=== PATIENT | male | born 1970 | race Caucasian/White ===

== ENCOUNTER 2016-06-08 12:40 | Emergency (ER) | payer MEDICARE, MEDICAID ==
--- NOTE | 2016-06-08 13:06 | Emergency Department Record ---
History of Present Illness - General Chief complaint: Abscess Stated complaint: BLISTER ON R TOE Time Seen by Provider: 06/08/16 12:51 Source: Patient Mode of Arrival: Ambulatory Limitations: No limitations - History of Present Illness Initial comments: The patient has a hx of DM and is on Dialysis and has had a chronic callus to the ball of the R foot. One day ago the wound broke open and started draining. He went [place] [facility] [place] and received 2 different Abx's and was in the process of being admitted and then got angry due to the wait so he left. Now he is here at [facility] and asking for someone to clean the wound. He denies any other issues and did have dialysis 2 days ago and is due again tomorrow. complaint: Lesion Onset/Timin -: Days(s) Location: R foot Severity: Mild Severity scale (1-10): 1 Improves with: None Worsens with: None Context: None Associated symptoms: Denies other symptoms Treatments Prior to Arrival: Attempted to drain pus at home, Bandages - Related Data Home Medications Medication Instructions Recorded Confirmed Last Taken Amlodipine Besylate [Norvasc] 10 mg PO DAILY 02/14/14 06/08/16 02/27/14 09:00 Ergocalciferol (Vitamin D2) 50,000 unit PO WEEKLY 02/14/14 06/08/16 02/26/14 09: 00 [Vitamin D2] Furosemide 20 mg PO DAILY 02/14/14 06/08/16 02/27/14 09:00 Hydrochlorothiazide [Hctz] 25 mg PO DAILY 02/14/14 06/08/16 02/27/14 21:00 Atorvastatin Calcium [Lipitor] 40 mg PO DAILY 06/08/16 06/08/16 Unknown Carvedilol [Coreg] 25 mg PO BID 06/08/16 06/08/16 Unknown Insulin Aspart Protam & Aspart 18 unit SQ BID 06/08/16 06/08/16 Unknown [Novolog Mix 70/30 Vial] Isosorbide Dinitrate 10 mg PO DAILY 06/08/16 06/08/16 Unknown Allergies Allergy/AdvReac Type Severity Reaction Status Date / Time No Known Drug Allergies Allergy Verified 06/08/16 12:51 Travel Screening - Travel/Exposure Within Last 30 Days Have you traveled within the last 30 days?: No Review of Systems Constitutional: Denies: Chills, Fever Eyes: Denies: Eye discharge ENT: Denies: Congestion Respiratory: Denies: Cough, Dyspnea Past Medical History - SOCIAL HISTORY Smoking Status: Current every day smoker Alcohol Use: None Drug Use: None - RESPIRATORY Hx Respiratory Disorders: No - CARDIOVASCULAR Hx Cardio Disorders: Yes Hx Hypertension: Yes - NEURO Hx Neuro Disorders: Yes Hx Neuropathy: Yes - GI Hx GI Disorders: Yes Hx Hiatal Hernia: Yes Hx Pancreatitis: Yes Hx Rectal Bleeding: Yes - Hx Genitourinary Disorders: Yes Comment:: dialysis T, Th, Sat - ENDOCRINE Hx Endocrine Disorders: Yes Hx Diabetes: Yes - MUSCULOSKELETAL Hx Musculoskeletal Disorders: Yes Hx Back Injury: Yes - PSYCH Hx Psych Problems: Yes Hx Anxiety: Yes Hx Depression: Yes - HEMATOLOGY/ONCOLOGY Hx Hematology/Oncology Disorders: No Family Medical History Any Significant Family History?: Yes Hx Anxiety: Mother Hx Depression: Mother Hx Diabetes: Mother Hx Heart Disease: Mother Hx HTN: Mother Hx Resp Disorders: Mother Hx Seizures: Mother Hx Stroke: Father, Mother Physical Exam - General General Appearance: Alert, Oriented x3, Cooperative, No acute distress - Head Head exam: Atraumatic, Normocephalic, Normal inspection - Eye Eye exam: Normal appearance, PERRL - Neck Neck exam: Normal inspection, Full ROM. negative: Tenderness - Respiratory Respiratory exam: Normal lung sounds bilaterally. negative: Respiratory distress - Cardiovascular Cardiovascular Exam: Regular rate, Normal rhythm, Normal heart sounds - Extremities Extremities exam: Tenderness, Other (There is no significant swelling to the foot and the R DP pulse is WNL.). negative: Normal inspection (There is an open 2x2 cm wound to the ball of the R foot which is draining a small amount of purulent material. There is erythema to the sole of the foot around the wound.) , Full ROM, Joint swelling Course Vital Signs 06/08/16 12:43 Temperature 97.6 F Pulse Rate 83 Respiratory 18 Rate Blood Pressure 171/103 Pulse Ox 98 - Reevaluation(s) Reevaluation #1: I did discuss the issues with the patient. He repeatedly is asking to stay at [facility]. I explained to him that due to the fact we have no foot surgeon or hemodialysis here that will not be possible. I explained to him that he will need to stay in a larger hospital and he chose [facility] [place] to his dialysis doctor being on staff there. 06/08/16 13:42 Reevaluation #2: I did discuss the case with Dr. Jimenez at [facility] and he accepts the patient to the hospital. 06/08/16 13:47 Reevaluation #3: The patient is refusing transfer by Ambulance. He understands the risks of driving with his family to [facility] and accepts the risks. 06/08/16 14:19 Medical Decision Making - Lab Data Result diagrams: 06/08/16 13:00 06/08/16 13:00 Disposition Disposition: Discharge Clinical Impression: Cellulitis of foot, right Disposition: Acute Care Hospital Transfer Transfer To: [facility] Reason For Transfer: Dialysis Accepting Physician: Barbara. Time Discussed w/Accepting Physician: 13:48 Condition: (2) Stable Forms: Patient Portal Access Time of Disposition: 13:49
[2016-06-08 13:14] LABS: BASO % 0.4 % (0-6); GRAN % 79.6 % (47-80); HEMATOCRIT 33.2 % (42.0-52.0); HEMOGLOBIN 11.2 gm/dl (14.0-18.0); LYMPH % 9.5 % (16-45); MEAN CELL VOLUME 93.5 fl (81-97); MEAN CORPUSCULAR HEMOGLOBIN 31.5 pg (27-33); MEAN CORPUSCULAR HGB CONC 33.7 g/dl (32-36); MEAN PLATELET VOLUME 11.3 fl (7.4-10.4); MONO % 7.5 % (0-9); PLATELET COUNT 217 K/uL (130-400); RED BLOOD COUNT 3.55 M/uL (4.40-5.70); RED CELL DISTRIBUTION WIDTH 17.4 % (11.5-14.5); WHITE BLOOD COUNT W/O DIFF 8.5 K/uL (4.2-12.2)
[2016-06-08 13:27] LABS: ANION GAP 9.4 (7-16); C-REACTIVE PROTEIN 6.5 mg/dL (0.0-0.9); CARBON DIOXIDE 29.6 mmol/L (22-30); CREATININE 5.4 mg/dL (0.66-1.25)
[2016-06-08] MEDS ORDERED: HYDROCODONE/APAP 7.5/325MG TABLET PO ONE (13:42)
[2016-06-08] MEDS ORDERED: CEFTRIAXONE SODIUM 1 GM in 0.9 % SODIUM CHLORIDE 100ML 100 ML IVPB ONE (13:42)
[2016-06-08 13:49] LABS: ERYTHROCYTE SEDIMENTATION RATE 28 mm/hr (0-15)
== END 2016-06-08 14:31 | disposition short-term general hospital (02) ==
LOC: ER 12:40
DX: E11.628 Type 2 diabetes mellitus with other skin complications (principal); L03.115 Cellulitis of right lower limb; Z79.4 Long term (current) use of insulin
CPT/HCPCS: 80048; 85025; 85651; 86140; 96365; 99284

== ENCOUNTER 2016-09-07 01:24 | Emergency (ER) | payer MEDICARE, MEDICAID ==
[2016-09-07] MEDS ORDERED: DIAZEPAM 5 MG/1 ML TUBX IM ONE (01:41)
--- NOTE | 2016-09-07 01:48 | Emergency Department Record ---
History of Present Illness - General Chief complaint: Pain Stated complaint: LOWER EXTREMITY PAIN Time Seen by Provider: 09/07/16 01:41 Source: Patient Mode of Arrival: Ambulatory Limitations: No limitations - History of Present Illness Initial comments: 45 yo male presents to ED with a CC of "leg pain" resulting from neuropathy. Patient reports that he has chronic neuropathy pain all the time, however his symptoms worsen during and following Dialysis. Patient describes his pain as "spasms". Patient reports that he was dialyzed yesterday morning, and his symptoms have worsened since that time. Patient reports that his family doctor has taken him off all his pain medications and he is awaiting pain specialist consultation in [place]. Patient denies new injury, and reports that he is only taking "Tylenol for his pain symptoms" at home. MD Complaint: Extremity pain Onset/Timin -: Days(s) Location: Bilateral, Lower Leg, Thigh History of Same: Yes Severity scale (1-10): 10 Quality: Aching Consistency: Constant Improves with: Nothing Worsens with: Nothing Associated Symptoms: Denies other symptoms - Related Data Home Medications Medication Instructions Recorded Confirmed Last Taken Amlodipine Besylate [Norvasc] 10 mg PO DAILY 02/14/14 09/07/16 02/27/14 09:00 Carvedilol [Coreg] 25 mg PO BID 06/08/16 09/07/16 Unknown Insulin Aspart Prot/Insuln Asp 18 unit SQ BID 06/08/16 09/07/16 Unknown [Novolog Mix 70/30 Vial] Sevelamer Carbonate [Renvela] 800 mg PO BID 09/07/16 09/07/16 Unknown Allergies Allergy/AdvReac Type Severity Reaction Status Date / Time No Known Drug Allergies Allergy Verified 06/08/16 12:51 Travel Screening - Travel/Exposure Within Last 30 Days Have you traveled within the last 30 days?: No Review of Systems Constitutional: Denies: Chills, Fever, Malaise, Night sweats Eyes: Denies: Eye discharge, Eye pain ENT: Denies: Congestion, Ear pain, Epistaxis Respiratory: Denies: Cough, Dyspnea Cardiovascular: Denies: Chest pain, Dyspnea on exertion Endocrine: Denies: Fatigue, Heat or cold intolerance Gastrointestinal: Denies: Abdominal pain, Nausea, Vomiting Genitourinary: Denies: Incontinence, Retention Musculoskeletal: Reports: Myalgia. Denies: Arthralgia, Back pain, Gout, Joint swelling Skin: Denies: Bruising, Change in color Neurological: Denies: Abnormal gait, Confusion, Headache, Numbness, Paresthesias , Seizure Psychiatric: Denies: Anxiety Hematological/Lymphatic: Denies: Anemia, Blood Clots Past Medical History - SOCIAL HISTORY Smoking Status: Current every day smoker Alcohol Use: None Drug Use: None - RESPIRATORY Hx Respiratory Disorders: No - CARDIOVASCULAR Hx Cardio Disorders: Yes Hx Hypertension: Yes - NEURO Hx Neuro Disorders: Yes Hx Neuropathy: Yes - GI Hx GI Disorders: Yes Hx Hiatal Hernia: Yes Hx Pancreatitis: Yes Hx Rectal Bleeding: Yes - Hx Genitourinary Disorders: Yes Comment:: dialysis T, Th, Sat - ENDOCRINE Hx Endocrine Disorders: Yes Hx Diabetes: Yes - MUSCULOSKELETAL Hx Musculoskeletal Disorders: Yes Hx Back Injury: Yes - PSYCH Hx Psych Problems: Yes Hx Anxiety: Yes Hx Depression: Yes - HEMATOLOGY/ONCOLOGY Hx Hematology/Oncology Disorders: No Family Medical History Any Significant Family History?: Yes Hx Anxiety: Mother Hx Depression: Mother Hx Diabetes: Mother Hx Heart Disease: Mother Hx HTN: Mother Hx Resp Disorders: Mother Hx Seizures: Mother Hx Stroke: Father, Mother Physical Exam - General General Appearance: Alert, Oriented x3, Cooperative, Moderate distress, Other ( Patient is agitated on examination) Limitations: No limitations - Head Head exam: Atraumatic, Normocephalic, Normal inspection Head exam detail: negative: Abrasion, Contusion, Dumont's sign, General tenderness, Hematoma, Laceration - Eye Eye exam: Normal appearance. negative: Conjunctival injection, Periorbital swelling, Periorbital tenderness, Scleral icterus - ENT Ear exam: negative: Auricular hematoma, Auricular trauma Nasal Exam: negative: Active bleeding, Discharge, Dried blood, Foreign body Mouth exam: negative: Drooling, Laceration, Muffled voice, Tongue elevation - Neck Neck exam: Normal inspection. negative: Meningismus, Tenderness - Respiratory Respiratory exam: Normal lung sounds bilaterally. negative: Respiratory distress, Rhonchi, Stridor, Wheezes - Cardiovascular Cardiovascular Exam: Regular rate, Normal rhythm, Normal heart sounds - GI/Abdominal GI/Abdominal exam: Soft. negative: Organomegaly, Rebound, Rigid, Tenderness - Rectal Rectal exam: Deferred - exam: Deferred - Extremities Extremities exam: Other (Fistula to the LUE). negative: Pedal edema, Tenderness - Back Back exam: Denies: CVA tenderness (R), CVA tenderness (L) - Neurological Neurological exam: Alert, Normal gait, Oriented X3 - Psychiatric Psychiatric exam: Normal affect, Normal mood - Skin Skin exam: Normal color. negative: Abrasion Type of lesion: negative: abrasion Course Vital Signs 09/07/16 01:29 Temperature 97.7 F Pulse Rate 90 Respiratory 24 Rate Blood Pressure 184/108 Pulse Ox 98 - Reevaluation(s) Reevaluation #1: 09/07/16 01:46 During discussion with the patient, patient reports that his PCP is "a dumb shit " and doesn't "do anything for me". I offered the patient Neurontin, Lyrica, or Tramadol for his pain symptoms, patient reports "those don't do shit for me, I need [place] or Percocet like Dr. Santos gave ma following my fistula". I explained to the patient that I am unable to prescribe opiate pain medication for his chronic pain symptoms, patient replied "so you won't do shit for me either". Valium was offered for his spasm pain, will reassess. Reevaluation #2: 09/07/16 02:08 Patient reassessed, reports significant improvement in his symptoms. Patient appears stable for discharge at this time. Disposition Disposition: Discharge Clinical Impression: Chronic painful diabetic neuropathy Disposition: Home, Self-Care Condition: (2) Stable Instructions: Diabetic Peripheral Neuropathy (ED) Additional Instructions: Return to ED if your symptoms worsen or if you have any concerns. Follow-up with your family doctor at [facility] in 1-3 days for further evaluation. Forms: Patient Portal Access Time of Disposition: 02:09
== END 2016-09-07 02:19 | disposition home or self-care (01) ==
LOC: ER 01:24
DX: E11.42 Type 2 diabetes mellitus with diabetic polyneuropathy (principal); E11.65 Type 2 diabetes mellitus with hyperglycemia; G89.4 Chronic pain syndrome; Z79.4 Long term (current) use of insulin; I10 Essential (primary) hypertension; Z99.2 Dependence on renal dialysis; F17.200 Nicotine dependence, unspecified, uncomplicated
CPT/HCPCS: 72192; 80053; 83605; 85027; 85610; 85730; 86140; J3360

== ENCOUNTER 2016-09-07 23:58 | Emergency (ER) | payer MEDICARE, MEDICAID ==
--- NOTE | 2016-09-08 00:15 | Emergency Department Record ---
History of Present Illness - General Stated complaint: PAIN Time Seen by Provider: 09/08/16 00:10 Source: Patient, Family Mode of Arrival: Ambulatory Limitations: No limitations - History of Present Illness Initial comments: 45 yo male presents with leg pain. He had DM and ESRD on HD. He reports he has chronic pain from his neuropathy. He reports his doctor took him off his pain medications waiting for a pain specialist. Over the last week he has developed swelling, tightness of the skin, warmth and redness. He denies any fevers. He has a tender area in the left groin with tenderness going down the leg. It hurts to stand or walk. MD Complaint: Extremity pain, Extremity swelling -: Days(s) Location: Left -: Yes Arthralgia Radiation: Proximal, Distal Quality: Aching Consistency: Constant Improves with: Rest Worsens with: Exertion, Palpation, Walking, Weight bearing Associated Symptoms: Denies other symptoms - Related Data Home Medications Medication Instructions Recorded Confirmed Last Taken Amlodipine Besylate [Norvasc] 10 mg PO DAILY 02/14/14 09/08/16 09/07/16 Carvedilol [Coreg] 25 mg PO BID 06/08/16 09/08/16 09/07/16 Insulin Aspart Prot/Insuln Asp 0 unit SQ BID 06/08/16 09/08/16 09/07/16 [Novolog Mix 70/30 Vial] Sevelamer Carbonate [Renvela] 800 mg PO BID 09/07/16 09/08/16 09/07/16 Allergies Allergy/AdvReac Type Severity Reaction Status Date / Time No Known Drug Allergies Allergy Verified 06/08/16 12:51 Review of Systems Constitutional: Reports: Malaise. Denies: Chills, Fever, Weakness Eyes: Denies: Eye discharge ENT: Denies: Congestion, Throat pain Respiratory: Denies: Cough, Dyspnea, Hemoptysis, Stridor, Wheezes Cardiovascular: Denies: Chest pain, Palpitations, Syncope Endocrine: Reports: Fatigue. Denies: Polydipsia, Polyuria Gastrointestinal: Denies: Abdominal pain, Diarrhea, Nausea, Vomiting Genitourinary: Denies: Hematuria, Urgency Musculoskeletal: Reports: Arthralgia, Myalgia. Denies: Joint swelling, Neck pain Skin: Reports: Change in color. Denies: Bruising Neurological: Denies: Confusion, Headache Psychiatric: Denies: Anxiety Hematological/Lymphatic: Denies: Blood Clots, Easy bleeding, Easy bruising, Swollen glands Past Medical History - SOCIAL HISTORY Smoking Status: Current every day smoker Drug Use: None - RESPIRATORY Hx Respiratory Disorders: No - CARDIOVASCULAR Hx Cardio Disorders: Yes Hx Hypertension: Yes - NEURO Hx Neuro Disorders: Yes Hx Neuropathy: Yes - GI Hx GI Disorders: Yes Hx Hiatal Hernia: Yes Hx Pancreatitis: Yes Hx Rectal Bleeding: Yes - Hx Genitourinary Disorders: Yes Comment:: dialysis T, Th, Sat - ENDOCRINE Hx Endocrine Disorders: Yes Hx Diabetes: Yes - MUSCULOSKELETAL Hx Musculoskeletal Disorders: Yes Hx Back Injury: Yes - PSYCH Hx Psych Problems: Yes Hx Anxiety: Yes Hx Depression: Yes - HEMATOLOGY/ONCOLOGY Hx Hematology/Oncology Disorders: No Family Medical History Hx Anxiety: Mother Hx Depression: Mother Hx Diabetes: Mother Hx Heart Disease: Mother Hx HTN: Mother Hx Resp Disorders: Mother Hx Seizures: Mother Hx Stroke: Father, Mother Physical Exam - General General Appearance: Alert, Oriented x3, Cooperative, No acute distress Limitations: No limitations - Head Head exam: Normal inspection - Eye Eye exam: Normal appearance, PERRL - ENT ENT exam: Normal exam Ear exam: Normal external inspection Nasal Exam: Normal inspection Mouth exam: Normal external inspection Teeth exam: Normal inspection Throat exam: Normal inspection - Neck Neck exam: Normal inspection, Full ROM. negative: Tenderness - Respiratory Respiratory exam: Normal lung sounds bilaterally. negative: Respiratory distress - Cardiovascular Cardiovascular Exam: Regular rate, Normal rhythm, Normal heart sounds - GI/Abdominal GI/Abdominal exam: Soft. negative: Distended - exam: Other (Erythema of groin, ) - Extremities Extremities exam: Calf tenderness, Pedal edema, Tenderness. negative: Normal inspection, Joint swelling Image of Full Body: 1 - erythema from the groin medially down the leg medially with warmth, there is diffuse swelling, the bilateral groin is consistent with tenia cruris but the left has swelling and fullness inthe proximal thigh/groin junciton with tenderness, scrotal erythema as well. mild scrotal swelling, non tender scrotum 2 - abrasion with shallow ulceration with erythema 3 - dry right foot ulceration - Back Back exam: Reports: Normal inspection, Full ROM. Denies: Muscle spasm, Rash noted, Tenderness - Neurological Neurological exam: Alert, Normal gait, Oriented X3, Reflexes normal - Psychiatric Psychiatric exam: Normal affect, Normal mood - Skin Skin exam: Erythema (LLE) Course - Reevaluation(s) Reevaluation #1: Prior charts reviewed from ED. 09/08/16 00:59 Reevaluation #2: The labs were reviewed WBC is 12.6 CRP is elevated at 6.6 The Lactic Acid is 1.3 BUN/CR is 41 and 3.8 Sodium is 126 Glucose is [address] Pending of the pelvis. 09/08/16 01:29 Reevaluation #3: The [facility] CT scan was reviewed Diffuse anasarca with ascites fluid tracking throughout the visualized pelvis. No free air. Soft tissues are normal. 09/08/16 02:00 Reevaluation #4: I Discussed with the patient transfer to a hospital with HD, surgery if needed, doppler US He prefers [facility] for transfer. He is unsure who his PCP is I use [facility] to discuss the case with the ED at [facility] I SW Dr Whitten of the [facility] ED She accepts the patient for transfer ED to ED 09/08/16 02:10 Reevaluation #5: Insulin was given for the elevated glucose The AG and HCO3 are normal no sign of DKA 09/08/16 02:20 Medical Decision Making - Lab Data Result diagrams: 09/08/16 00:50 09/08/16 00:50 Disposition Disposition: Transfer Clinical Impression: Cellulitis of leg, left Disposition: Acute Care Hospital Transfer Transfer To: [facility] Reason For Transfer: ESRD, Left leg infection, Doppler Accepting Physician: Dr Whitten Time Discussed w/Accepting Physician: 02:04 Condition: (1) Good Additional Instructions: Call your doctor tomorrow to discuss exterminator helper pain control. Call your new pain specialist for the next available appointment. Time of Disposition: 02:12
[2016-09-08] MEDS: MORPHINE SULFATE 5 MG/ML PFS IVP ONE (00:55)
[2016-09-08 00:57] LABS: BASO % 0.2 % (0-6); EOS % 1.3 % (0-6); HEMATOCRIT 32.3 % (42.0-52.0); HEMOGLOBIN 10.8 gm/dl (14.0-18.0); LYMPH % 6.9 % (16-45); MEAN CELL VOLUME 86.1 fl (81-97); MEAN CORPUSCULAR HEMOGLOBIN 28.8 pg (27-33); MEAN CORPUSCULAR HGB CONC 33.4 g/dl (32-36); MEAN PLATELET VOLUME 10.8 fl (7.4-10.4); MONO % 6.3 % (0-9); PLATELET COUNT 187 K/uL (130-400); RED BLOOD COUNT 3.75 M/uL (4.40-5.70); RED CELL DISTRIBUTION WIDTH 17.1 % (11.5-14.5); WHITE BLOOD COUNT W/O DIFF 12.6 K/uL (4.2-12.2)
[2016-09-08 01:09] LABS: INR 1.04; PARTIAL THROMBOPLASTIN TIME 29.1 SECONDS (24.5-39.1); PROTHROMBIN TIME (PATIENT) 11.7 SECONDS (9.5-12.1)
[2016-09-08 01:12] LABS: ALB/GLOB RATIO 0.8 (1.1-1.8); ALBUMIN 3.1 gm/dL (3.5-5.0); ANION GAP 7.2 (7-16); BILIRUBIN,TOTAL 0.86 mg/dL (0.2-1.3); C-REACTIVE PROTEIN 6.6 mg/dL (0.0-0.9); CARBON DIOXIDE 28.8 mmol/L (22-30); CREATININE 3.8 mg/dL (0.66-1.25); TOTAL PROTEIN 6.8 gm/dL (6.3-8.2)
[2016-09-08] MEDS: ERTAPENEM SODIUM 1 G in 0.9 % SODIUM CHLORIDE 100ML 100 ML IVPB ONE (01:44)
[2016-09-08] MEDS: HUMULIN R 100 UNIT/ML VIAL SQ PRN (02:24)
--- NOTE | 2016-09-09 13:46 | CT SCAN REPORT ---
EXAM: CT OF THE PELVIS WITHOUT CONTRAST HISTORY: LEFT SIDED GROIN PAIN. TECHNIQUE: CT of the pelvis was performed without oral or IV contrast. This limits evaluation of bowel and solid visceral organs. Comparison: Prior CT of the abdomen and pelvis dated 01/28/13. FINDINGS: There is diffuse anasarca. Limited evaluation of intrapelvic structures shows a large volume of ascites. Subjective wall thickening of the urinary bladder. Nonspecific inguinal chain adenopathy bilaterally. The largest node has a lobulated appearance, in the right inguinal region measuring 3.7 x 2.0 cm. This is new from the prior exam. Moderate atheromatous changes. The osseous structures are grossly intact. IMPRESSION: 1. DIFFUSE ANASARCA. LARGE VOLUME OF ASCITES IN THE PELVIS. VASCULAR CALCIFICATIONS. 2. NONSPECIFIC INGUINAL CHAIN ADENOPATHY. JOB NUMBER: [id number] [facility]
== END 2016-09-08 02:50 | disposition short-term general hospital (02) ==
LOC: ER 23:58
DX: L03.116 Cellulitis of left lower limb (principal); I10 Essential (primary) hypertension; F17.200 Nicotine dependence, unspecified, uncomplicated; E11.42 Type 2 diabetes mellitus with diabetic polyneuropathy; Z79.4 Long term (current) use of insulin
CPT/HCPCS: 72192; 80053; 83605; 85027; 85610; 85730; 86140; 93041; 96365; 96372; 96375; 99283; 99285; J3360

== ENCOUNTER 2016-11-25 11:24 | Emergency (ER) | payer MEDICARE, MEDICAID ==
[2016-11-25] MEDS: HYDROCODONE/APAP 5/325MG TABLET PO ONE (12:21)
[2016-11-25 12:52] LABS: HEMATOCRIT 32.3 % (42.0-52.0); HEMOGLOBIN 10.7 gm/dl (14.0-18.0); MEAN CORPUSCULAR HEMOGLOBIN 27.5 pg (27-33); MEAN CORPUSCULAR HGB CONC 33.1 g/dl (32-36); MEAN PLATELET VOLUME 9.4 fl (7.4-10.4); PLATELET COUNT 350 K/uL (130-400); RED BLOOD COUNT 3.89 M/uL (4.40-5.70); RED CELL DISTRIBUTION WIDTH 16.8 % (11.5-14.5); WHITE BLOOD COUNT W/O DIFF 14.3 K/uL (4.2-12.2)
[2016-11-25 13:02] LABS: PLATELET ESTIMATE NORMAL (NORMAL)
[2016-11-25 13:04] LABS: ANION GAP 10.9 (7-16); CARBON DIOXIDE 28.1 mmol/L (22-30); CREATININE 4.6 mg/dL (0.66-1.25)
--- NOTE | 2016-11-25 14:15 | Emergency Department Record ---
History of Present Illness - General Chief complaint: Abscess Stated complaint: BOIL ON HEAD Time Seen by Provider: 11/25/16 11:47 Source: Patient, Family Mode of Arrival: Wheelchair Limitations: No limitations - History of Present Illness Initial comments: pt had what he thought was an ingrown hair which he picked at and thought he got something out. since then it has gotten much worse. pt is a dialysis pt and is due for dialysis tomorrow. scalp is exquisitely tender and has swelling MD complaint: Abscess/boil Onset/Timin -: Days(s) Location: Head Severity: Mild Severity scale (1-10): 10 Quality: Aching Consistency: Constant Improves with: None Worsens with: Palpation Associated symptoms: Other Treatments Prior to Arrival: Attempted to drain pus at home, OTC topical medication, Prescription analgesic - Related Data Home Medications Medication Instructions Recorded Confirmed Last Taken Clonidine HCl 0.1 mg PO Q6H 11/25/16 11/25/16 11/25/16 Ferrous Sulfate 325 mg PO DAILY 11/25/16 11/25/16 11/25/16 Furosemide [Lasix] 60 mg PO BID 11/25/16 11/25/16 11/25/16 Hydrocodone/Acetaminophen [[place] 1 tab PO Q6H PRN 11/25/16 11/25/16 11/25/16 10mg/325mg] Insulin Aspart [Novolog Flexpen] 30 unit SQ DAILY 11/25/16 11/25/16 11/24/16 Insulin Glargine,Hum.rec.anlog 10 unit SQ QHS 11/25/16 11/25/16 11/24/16 [Lantus Solostar] Sevelamer HCl [Renagel] 800 mg PO TID 11/25/16 11/25/16 Unknown Allergies Allergy/AdvReac Type Severity Reaction Status Date / Time No Known Drug Allergies Allergy Verified 06/08/16 12:51 Travel Screening - Travel/Exposure Within Last 30 Days Have you traveled within the last 30 days?: No - Travel/Exposure Within Last Year Have you traveled outside the [place] in the last year?: No - Additonal Travel Details Have you been exposed to anyone with a communicable illness?: No Review of Systems Reviewed: No additional complaints except as noted below Constitutional: Reports: As per HPI. Denies: Chills, Fever, Malaise, Night sweats, Weakness, Weight change Eyes: Reports: As per HPI. Denies: Eye discharge, Eye pain, Photophobia, Vision change ENT: Reports: As per HPI. Denies: Congestion, Dental pain, Ear pain, Epistaxis , Hearing loss, Throat pain Respiratory: Reports: As per HPI. Denies: Cough, Dyspnea, Hemoptysis, Stridor, Wheezes Cardiovascular: Reports: As per HPI. Denies: Arrhythmia, Chest pain, Dyspnea on exertion, Edema, Murmurs, Orthopnea, Palpitations, Paroxysmal nocturnal dyspnea, Rheumatic Fever, Syncope Endocrine: Reports: As per HPI. Denies: Fatigue, Heat or cold intolerance, Polydipsia, Polyuria Gastrointestinal: Reports: As per HPI. Denies: Abdominal pain, Constipation, Diarrhea, Hematemesis, Hematochezia, Melena, Nausea, Vomiting Genitourinary: Reports: As per HPI. Denies: Dysuria, Frequency, Hematuria, Incontinence, Retention, Testicular pain, Testicular mass, Urgency Musculoskeletal: Reports: As per HPI. Denies: Arthralgia, Back pain, Gout, Joint swelling, Myalgia, Neck pain Skin: Reports: As per HPI. Denies: Bruising, Change in color, Change in hair/ nails, Lesions, Pruritus, Rash Neurological: Reports: As per HPI. Denies: Abnormal gait, Confusion, Headache, Numbness, Paresthesias, Seizure, Tingling, Tremors, Vertigo, Weakness Psychiatric: Reports: As per HPI. Denies: Anxiety, Auditory hallucinations, Depression, Homicidal thoughts, Suicidal thoughts, Visual hallucinations Hematological/Lymphatic: Reports: As per HPI. Denies: Anemia, Blood Clots, Easy bleeding, Easy bruising, Swollen glands Past Medical History - SOCIAL HISTORY Smoking Status: Current every day smoker Alcohol Use: None Drug Use: Occasional Drug Use Detail:: Marijuana - RESPIRATORY Hx Respiratory Disorders: No - CARDIOVASCULAR Hx Cardio Disorders: Yes Hx Hypertension: Yes - NEURO Hx Neuro Disorders: Yes Hx Neuropathy: Yes - GI Hx GI Disorders: Yes Hx Hiatal Hernia: Yes Hx Pancreatitis: Yes Hx Rectal Bleeding: Yes - Hx Genitourinary Disorders: Yes Comment:: dialysis T, Th, Sat - ENDOCRINE Hx Endocrine Disorders: Yes Hx Diabetes: Yes - MUSCULOSKELETAL Hx Musculoskeletal Disorders: Yes Hx Back Injury: Yes - PSYCH Hx Psych Problems: Yes Hx Anxiety: Yes Hx Depression: Yes - HEMATOLOGY/ONCOLOGY Hx Hematology/Oncology Disorders: No Hx Blood Transfusions: Yes Family Medical History Any Significant Family History?: No Hx Anxiety: Mother Hx Depression: Mother Hx Diabetes: Mother Hx Heart Disease: Mother Hx HTN: Mother Hx Resp Disorders: Mother Hx Seizures: Mother Hx Stroke: Father, Mother Physical Exam - General General Appearance: Alert, Oriented x3, Cooperative, Moderate distress - Head Head exam: Normal inspection Head exam detail: General tenderness Image of Face/Head: 1 - swelling, tender - Eye Eye exam: Normal appearance, PERRL, EOMI Pupils: Normal accommodation - ENT ENT exam: Normal exam, Mucous membranes moist, Normal external ear exam, Normal orophraynx, TM's normal bilaterally Ear exam: Normal external inspection. negative: External canal tenderness Nasal Exam: Normal inspection. negative: Discharge, Sinus tenderness Mouth exam: Normal external inspection, Tongue normal Teeth exam: Normal inspection. negative: Dental caries Throat exam: Normal inspection. negative: Tonsillar erythema, Tonsillar exudate - Neck Neck exam: Normal inspection, Full ROM. negative: Tenderness - Respiratory Respiratory exam: Normal lung sounds bilaterally. negative: Respiratory distress - Cardiovascular Cardiovascular Exam: Regular rate, Normal rhythm, Normal heart sounds - GI/Abdominal GI/Abdominal exam: Soft, Normal bowel sounds. negative: Tenderness - Rectal Rectal exam: Deferred - exam: Deferred - Extremities Extremities exam: Normal inspection, Full ROM, Normal capillary refill. negative: Tenderness - Back Back exam: Reports: Normal inspection, Full ROM. Denies: Muscle spasm, Rash noted, Tenderness - Neurological Neurological exam: Alert, Normal gait, Oriented X3, Reflexes normal - Psychiatric Psychiatric exam: Normal affect, Normal mood - Skin Skin exam: Dry, Intact, Normal color, Warm Course Vital Signs 11/25/16 11:35 Temperature 97.6 F Pulse Rate 65 Respiratory 20 Rate Blood Pressure 149/89 Pulse Ox 96 - Reevaluation(s) Reevaluation #1: 11/25/16 14:15 pt refused to let me fully examine scalp Medical Decision Making - Lab Data Result diagrams: 11/25/16 12:45 11/25/16 12:45 Lab Results 11/25/16 11/25/16 Range/Units 12:45 12:45 WBC 14.3 H (4.2-12.2) K/uL RBC 3.89 L (4.40-5.70) M/uL Hgb 10.7 L (14.0-18.0) gm/dl Hct 32.3 L (42.0-52.0) % MCV 83.0 (81-97) fl MCH 27.5 (27-33) pg MCHC 33.1 (32-36) g/dl RDW 16.8 H (11.5-14.5) % Plt Count 350 (130-400) K/uL MPV 9.4 (7.4-10.4) fl Neutrophils % 84.0 H (47-80) % Eosinophils % Not Reportable Basophils % Not Reportable Lymphocytes 7.0 L (16-45) % Monocytes 4.0 (0-9) % Platelet Estimate Normal (NORMAL) RBC Morphology Normal Eosinophil Count 5.0 (0-6) % Sodium 132 L (136-145) mmol/L Potassium 4.9 (3.5-5.1) mmol/L Chloride 93 L (98-107) mmol/L Carbon Dioxide 28.1 (22-30) mmol/L Anion Gap 10.9 (7-16) BUN 61 H (9-20) mg/dL Creatinine 4.6 H (0.66-1.25) mg/dL Estimated GFR 15 ml/min Random Glucose 149 H (70-110) mg/dL Calcium 8.5 (8.5-10.1) mg/dL Disposition Disposition: Transfer Clinical Impression: Abscess or cellulitis of scalp Renal failure Qualifiers: Renal failure chronicity: chronic Chronic kidney disease stage: on chronic dialysis Qualified Code(s): N18.6 - End stage renal disease; Z99.2 - Dependence on renal dialysis Disposition: Acute Care Hospital Transfer Transfer To: [facility] Reason For Transfer: dialysis pt with cellulitis Accepting Physician: dr Art Lopez Time Discussed w/Accepting Physician: 14:24 Condition: (2) Stable Forms: Patient Portal Access Quality - Quality Measures Quality Measures: N/A - Blood Pressure Screening Does Patient Have Any of the Following: No Blood Pressure Classification: Pre-Hypertensive BP Reading Systolic Measurement: 149 Diastolic Measurement: 89 Screening for High Blood Pressure: < Pre-Hypertensive BP, F/U Documented > [ G8950] Pre-Hypertensive Follow-up Interventions: Follow-up with rescreen every year.
[2016-11-25] MEDS: VANCOMYCIN HCL 1,000 MG in 0.9 % SODIUM CHLORIDE 250ML 250 ML IVPB ONE (14:37)
[2016-11-25] MEDS: HYDROMORPHONE HCL 1MG/ML **SYRINGE IVP ONE (14:39)
[2016-11-25] MEDS: VANCOMYCIN HCL 500 MG in 0.9 % SODIUM CHLORIDE 100ML 100 ML IV ONE (15:09)
--- NOTE | 2016-11-26 08:56 | CT SCAN REPORT ---
EXAM: HEAD CT WITHOUT CONTRAST HISTORY: ABSCESS RIGHT SCALP. DIABETIC CURRENTLY ON DIALYSIS. TECHNIQUE: Contiguous axial images from the cerebral convexities to the foramen magnum were obtained without contrast. Comparison: None. FINDINGS: There is increased attenuation and skin thickening throughout the right parietal scalp. Discreet low attenuation focus with peripheral hyperdense wall best seen on axial image 42 of 59 measuring 2.1 x 2.1 cm. Inflammatory fat stranding extends to the occipital scalp. Enlarged posterior triangle lymph node on the right likely reactive. The brain volume is normal. No acute intracranial hemorrhage, mass effect, or midline shift. No CT evidence of acute infarct. The ventricles, basal cisterns, and sulci are within normal limits. Mild calcification of the cavernous segments of the internal carotid arteries. IMPRESSION: 1. LOW ATTENUATION FOCUS WITH HYPERDENSE RIM WITHIN THE RIGHT PARIETAL SCALP MEASURING UP TO 2.1 CM WHICH MAY REFLECT AN ABSCESS. THERE IS ADJACENT CELLULITIS EXTENDING TO THE SUBOCCIPITAL REGION. 2. NO ACUTE INTRACRANIAL PROCESS. JOB NUMBER: [id number] MTDD
== END 2016-11-25 15:24 | disposition short-term general hospital (02) ==
LOC: ER 11:24
DX: L03.811 Cellulitis of head [any part, except face] (principal); N18.6 End stage renal disease; Z99.2 Dependence on renal dialysis; E11.9 Type 2 diabetes mellitus without complications; Z79.4 Long term (current) use of insulin
CPT/HCPCS: 99285 ×2; 96365; 96375; 80048; 85027; 70450; J3370; J1170; J7050

== ENCOUNTER 2016-11-30 06:06 | Emergency (ER) | payer MEDICARE, MEDICAID ==
--- NOTE | 2016-11-30 06:31 | Emergency Department Record ---
History of Present Illness - General Chief complaint: Abscess Stated complaint: ABSCESS Time Seen by Provider: 11/30/16 06:19 Source: Patient Mode of Arrival: Ambulatory Limitations: No limitations - History of Present Illness Initial comments: The patient is here due to excessive bleeding from an I and D site in his R buttocks. He was originally here at [facility] on 11/25 and transferred to [facility] due to a scalp abscess. While he was there he developed a perirectal abscess and had it opened up 2 days ago. The patient and sister then state it was bleeding and something else was done to it yesterday but then he was discharged to home last night. Now the area is still bleeding so they did decide to come back to the ER for further evaluation. He denies any new pain or discomfort and needs to pick out hand his Abx script today. The patient is due for his Hemodialysis tomorrow. complaint: Abscess/boil Onset/Timin -: Days(s) Location: Buttocks Treatments Prior to Arrival: Other - Related Data Allergies Allergy/AdvReac Type Severity Reaction Status Date / Time No Known Drug Allergies Allergy Verified 06/08/16 12:51 Travel Screening - Travel/Exposure Within Last 30 Days Have you traveled within the last 30 days?: No Review of Systems Constitutional: Denies: Chills, Fever Eyes: Denies: Eye discharge ENT: Denies: Congestion Respiratory: Denies: Cough, Dyspnea Past Medical History - SOCIAL HISTORY Smoking Status: Current every day smoker - RESPIRATORY Hx Respiratory Disorders: No - CARDIOVASCULAR Hx Cardio Disorders: Yes Hx Hypertension: Yes - NEURO Hx Neuro Disorders: Yes Hx Neuropathy: Yes - GI Hx GI Disorders: Yes Hx Hiatal Hernia: Yes Hx Pancreatitis: Yes Hx Rectal Bleeding: Yes - Hx Genitourinary Disorders: Yes Comment:: dialysis T, , Wed - ENDOCRINE Hx Endocrine Disorders: Yes Hx Diabetes: Yes - MUSCULOSKELETAL Hx Musculoskeletal Disorders: Yes Hx Back Injury: Yes - PSYCH Hx Psych Problems: Yes Hx Anxiety: Yes Hx Depression: Yes - HEMATOLOGY/ONCOLOGY Hx Hematology/Oncology Disorders: No Hx Blood Transfusions: Yes Family Medical History Any Significant Family History?: Yes Hx Anxiety: Mother Hx Depression: Mother Hx Diabetes: Mother Hx Heart Disease: Mother Hx HTN: Mother Hx Resp Disorders: Mother Hx Seizures: Mother Hx Stroke: Father, Mother Physical Exam - General General Appearance: Alert, Oriented x3, Cooperative - Head Head exam: Atraumatic - Neck Neck exam: Normal inspection, Full ROM. negative: Tenderness - Respiratory Respiratory exam: Normal lung sounds bilaterally. negative: Respiratory distress - Cardiovascular Cardiovascular Exam: Regular rate, Normal rhythm, Normal heart sounds - Rectal Rectal exam: Tenderness (There is tenderness and induration at the R perirectal abscess site with mild bleeding present. There does not appear to be any packing in place.), Other Course Vital Signs 11/30/16 06:08 Temperature 97.5 F L Pulse Rate 90 Respiratory 18 Rate Blood Pressure 156/89 Pulse Ox 97 - Reevaluation(s) Reevaluation #1: The patient's care will be turned over to Dr. Mosher at 7am due to shift change. 11/30/16 07:04 Medical Decision Making - Data Complexity MDM Data: Labs Ordered and/or Reviewed - Lab Data Result diagrams: 11/30/16 06:35 11/30/16 06:35 Disposition Forms: Patient Portal Access Quality - Quality Measures Quality Measures: N/A - Blood Pressure Screening View Details: Yes Does Patient Have Any of the Following: Active Dx of HTN Blood Pressure Classification: Pre-Hypertensive BP Reading Systolic Measurement: 156 Diastolic Measurement: 89 Screening for High Blood Pressure: Patient Exclusion, Hx of HTN [G9744]
[2016-11-30 06:45] LABS: BASO % 0.9 % (0-6); GRAN % 72.7 % (47-80); HEMATOCRIT 22.7 % (42.0-52.0); HEMOGLOBIN 7.5 gm/dl (14.0-18.0); LYMPH % 12.5 % (16-45); MEAN CELL VOLUME 82.5 fl (81-97); MEAN PLATELET VOLUME 9.3 fl (7.4-10.4); MONO % 7.9 % (0-9); PLATELET COUNT 405 K/uL (130-400); RED BLOOD COUNT 2.75 M/uL (4.40-5.70); RED CELL DISTRIBUTION WIDTH 15.9 % (11.5-14.5); WHITE BLOOD COUNT W/O DIFF 12.7 K/uL (4.2-12.2)
[2016-11-30 06:46] LABS: MEAN CORPUSCULAR HEMOGLOBIN 27.2 pg (27-33)
[2016-11-30 06:54] LABS: ANION GAP 14.5 (7-16); CARBON DIOXIDE 24.5 mmol/L (22-30); CREATININE 4.8 mg/dL (0.66-1.25)
[2016-11-30 06:55] LABS: INR 1.08; PARTIAL THROMBOPLASTIN TIME 30.8 SECONDS (24.5-39.1); PROTHROMBIN TIME (PATIENT) 11.7 SECONDS (9.5-12.1)
--- NOTE | 2016-11-30 07:15 | Emergency Department Record ---
History of Present Illness - General Chief complaint: Abscess Stated complaint: ABSCESS Time Seen by Provider: 11/30/16 06:19 Source: Patient, Family Mode of Arrival: Ambulatory Limitations: No limitations - History of Present Illness MD complaint: Abscess/boil Onset/Timin -: Days(s) Location: Buttocks Treatments Prior to Arrival: Other - Related Data Allergies Allergy/AdvReac Type Severity Reaction Status Date / Time No Known Drug Allergies Allergy Verified 06/08/16 12:51 Travel Screening - Travel/Exposure Within Last 30 Days Have you traveled within the last 30 days?: No Review of Systems Constitutional: Denies: Chills, Fever Eyes: Denies: Eye discharge ENT: Denies: Congestion Respiratory: Denies: Cough, Dyspnea Past Medical History - SOCIAL HISTORY Smoking Status: Current every day smoker - RESPIRATORY Hx Respiratory Disorders: No - CARDIOVASCULAR Hx Cardio Disorders: Yes Hx Hypertension: Yes - NEURO Hx Neuro Disorders: Yes Hx Neuropathy: Yes - GI Hx GI Disorders: Yes Hx Hiatal Hernia: Yes Hx Pancreatitis: Yes Hx Rectal Bleeding: Yes - Hx Genitourinary Disorders: Yes Comment:: dialysis T, Th, Sat - ENDOCRINE Hx Endocrine Disorders: Yes Hx Diabetes: Yes - MUSCULOSKELETAL Hx Musculoskeletal Disorders: Yes Hx Back Injury: Yes - PSYCH Hx Psych Problems: Yes Hx Anxiety: Yes Hx Depression: Yes - HEMATOLOGY/ONCOLOGY Hx Hematology/Oncology Disorders: No Hx Blood Transfusions: Yes Family Medical History Any Significant Family History?: Yes Hx Anxiety: Mother Hx Depression: Mother Hx Diabetes: Mother Hx Heart Disease: Mother Hx HTN: Mother Hx Resp Disorders: Mother Hx Seizures: Mother Hx Stroke: Father, Mother Physical Exam - General Limitations: No limitations Course Vital Signs 11/30/16 06:08 Temperature 97.5 F L Pulse Rate 90 Respiratory 18 Rate Blood Pressure 156/89 Pulse Ox 97 - Reevaluation(s) Reevaluation #1: Dr Wagner signed out the case at 7am with labs back and ready for disposition Hgb is 7.5 with a drop from 9.9 last night with a bleeding perirectal abscess. [facility] contacted for transfer 11/30/16 07:03 Given the oozing, the wound was repacked 1 Unit of PRBC ordered given the drop in Hgb and continued bleeding. 11/30/16 07:15 [facility] records were obtained The patient was admitted to the [facility] Surgeon was Dr Jorge Hgb 11/29/16 was 9.9 and is 7.5 today 11/30/16 07:34 Rechecked the wound The gauze is soaked but bleeding much improved 11/30/16 07:52 The area still has a mild ooze. Thromigel in TLE was packed in the wound. Awaiting [facility] Call back. 11/30/16 08:16 The patient has been accepted by Dr Tripp at [facility]. He accepts the patient for transfer, observation and I recommended surgery consult for the bleeding from the surgery site that was originally performed at [facility] by [facility] surgery. 11/30/16 09:35 Reevaluation #2: The patient is tolerating the transfusion without issue 11/30/16 09:04 11/30/16 12:32 Repeat Hgb 8.0 after the transfusion Reevaluation #3: Bed assigned and stable for transfer 11/30/16 12:58 Medical Decision Making - Lab Data Result diagrams: 11/30/16 12:14 11/30/16 06:35 Lab Results 11/30/16 11/30/16 11/30/16 Range/Units 06:35 06:35 06:35 WBC 12.7 H (4.2-12.2) K/uL RBC 2.75 L (4.40-5.70) M/uL Hgb 7.5 L (14.0-18.0) gm/dl Hct 22.7 L (42.0-52.0) % MCV 82.5 (81-97) fl MCH 27.2 (27-33) pg MCHC 33.0 (32-36) g/dl RDW 15.9 H (11.5-14.5) % Plt Count 405 H (130-400) K/uL MPV 9.3 (7.4-10.4) fl Gran % 72.7 (47-80) % Lymphocytes % 12.5 L (16-45) % Monocytes % 7.9 (0-9) % Eosinophils % 6.0 (0-6) % Basophils % 0.9 (0-6) % PT 11.7 (9.5-12.1) SECONDS INR 1.08 APTT 30.80 (24.5-39.1) SECONDS Sodium 132 L (136-145) mmol/L Potassium 5.2 H (3.5-5.1) mmol/L Chloride 93 L (98-107) mmol/L Carbon Dioxide 24.5 (22-30) mmol/L Anion Gap 14.5 (7-16) BUN 60 H (9-20) mg/dL Creatinine 4.8 H (0.66-1.25) mg/dL Estimated GFR 14 ml/min Random Glucose 229 H (70-110) mg/dL Calcium 8.0 L (8.5-10.1) mg/dL Disposition Disposition: Transfer Clinical Impression: Perirectal abscess, ESRD (end stage renal disease) Anemia Qualifiers: Anemia type: unspecified type Qualified Code(s): D64.9 - Anemia, unspecified Disposition: Acute Care Hospital Transfer Transfer To: [facility] Reason For Transfer: ESRD, Surgery consult Accepting Physician: Qasim Time Discussed w/Accepting Physician: 08:21 Condition: (2) Stable Forms: Patient Portal Access Time of Disposition: 07:00 Quality - Quality Measures Quality Measures: N/A - Blood Pressure Screening Does Patient Have Any of the Following: No Blood Pressure Classification: Pre-Hypertensive BP Reading Systolic Measurement: 156 Diastolic Measurement: 89 Screening for High Blood Pressure: < Pre-Hypertensive BP, F/U Documented > [ G8950] Pre-Hypertensive Follow-up Interventions: Referral to alternative/primary care provider.
[2016-11-30 07:59] LABS: ABO GROUP O; ANTIBODY SCREEN NEGATIVE (NEGATIVE); RH TYPE POSITIVE
[2016-11-30 08:01] LABS: IMMED. SPIN CROSSMATCH COMPATIBLE
[2016-11-30] MEDS ORDERED: TOPICAL LIDOCAINE W/ EPI 5 ML TOP ONE (08:10)
[2016-11-30] MEDS ORDERED: THROMBIN/GELATIN FOAM HEMOSTAT (THROMBI-GEL) TP ONE ×2 (08:10→08:54)
[2016-11-30] MEDS ORDERED: GELATIN SPONGE,ABSORBABLE 1 EACH SPONGE TP ONE (08:25)
[2016-11-30] MEDS ORDERED: FENTANYL PF 100MCG/2ML VIAL IVP ONE ×2 (09:30→11:30)
[2016-11-30] MEDS ORDERED: TRANEXAMIC ACID 1,000 MG/10 ML ML TOP ONE (11:30)
[2016-11-30 12:20] LABS: HEMATOCRIT 24.1 % (42.0-52.0)
== END 2016-11-30 13:24 | disposition short-term general hospital (02) ==
LOC: ER 06:06
DX: K61.1 Rectal abscess (principal); D64.9 Anemia, unspecified; I12.0 Hypertensive chronic kidney disease with stage 5 chronic kidney disease or end stage renal disease; E11.22 Type 2 diabetes mellitus with diabetic chronic kidney disease; N18.6 End stage renal disease; Z99.2 Dependence on renal dialysis; F17.210 Nicotine dependence, cigarettes, uncomplicated
CPT/HCPCS: 99285 ×2; 96376; 36430; 96374; 85025; 85018; 85014; 85730; 85610; 80048; 86900; 86901; 86850; P9016; J3010; J3490

== ENCOUNTER 2018-01-08 13:31 | Emergency (ER) | payer MEDICARE, MEDICAID ==
--- NOTE | 2018-01-08 14:40 | Emergency Department Record ---
History of Present Illness - General Chief complaint: Lower Extremity Pain Stated complaint: PAIN IN LT LEG Time Seen by Provider: 01/08/18 14:29 Source: Patient, RN notes reviewed Mode of Arrival: Wheelchair - History of Present Illness Initial comments: patient has a proxiaml fibular fracture and he fell 9 days ago and has a fibular fracture and a knee injury. Patient is on dialysis three times a week and he has an orthopod/learning coordinator Dr. Archer in [place] for a nfoot ulcer and he tells me he has to see his primary Dr to get referrals for ortho. Patient is out of norco given 10 pills at [facility]. 9 days ago. Onset/Timin -: Days(s) Location: Left, Lower Leg Associated Symptoms: Denies other symptoms - Related Data Home Medications Medication Instructions Recorded Confirmed Last Taken Clonazepam 0.5 mg PO DAILY PRN 01/08/18 01/08/18 01/08/18 Previous Rx's Medication Instructions Recorded Hydrocodone/Acetaminophen [[place] 1 each PO Q6HR #30 tablet 01/08/18 5-325 Tablet] Allergies Allergy/AdvReac Type Severity Reaction Status Date / Time No Known Drug Allergies Allergy Verified 06/08/16 12:51 Travel Screening - Travel/Exposure Within Last 30 Days Have you traveled within the last 30 days?: No - Travel/Exposure Within Last Year Have you traveled outside the [place] in the last year?: No - Additonal Travel Details Have you been exposed to anyone with a communicable illness?: No - Travel Symptoms Symptom Screening: None Review of Systems Reviewed: No additional complaints except as noted below Constitutional: Reports: As per HPI. Denies: Chills, Fever, Malaise, Night sweats, Weakness, Weight change Eyes: Reports: As per HPI. Denies: Eye discharge, Eye pain, Photophobia, Vision change ENT: Reports: As per HPI. Denies: Congestion, Dental pain, Ear pain, Epistaxis , Hearing loss, Throat pain Respiratory: Reports: As per HPI. Denies: Cough, Dyspnea, Hemoptysis, Stridor, Wheezes Cardiovascular: Reports: As per HPI. Denies: Arrhythmia, Chest pain, Dyspnea on exertion, Edema, Murmurs, Orthopnea, Palpitations, Paroxysmal nocturnal dyspnea, Rheumatic Fever, Syncope Endocrine: Reports: As per HPI. Denies: Fatigue, Heat or cold intolerance, Polydipsia, Polyuria Gastrointestinal: Reports: As per HPI. Denies: Abdominal pain, Constipation, Diarrhea, Hematemesis, Hematochezia, Melena, Nausea, Vomiting Genitourinary: Reports: As per HPI. Denies: Dysuria, Frequency, Hematuria, Incontinence, Retention, Testicular pain, Testicular mass, Urgency Musculoskeletal: Reports: As per HPI, Other (left knee pain). Denies: Arthralgia, Back pain, Gout, Joint swelling, Myalgia, Neck pain Skin: Reports: As per HPI. Denies: Bruising, Change in color, Change in hair/ nails, Lesions, Pruritus, Rash Neurological: Reports: As per HPI. Denies: Abnormal gait, Confusion, Headache, Numbness, Paresthesias, Seizure, Tingling, Tremors, Vertigo, Weakness Psychiatric: Reports: As per HPI. Denies: Anxiety, Auditory hallucinations, Depression, Homicidal thoughts, Suicidal thoughts, Visual hallucinations Hematological/Lymphatic: Reports: As per HPI. Denies: Anemia, Blood Clots, Easy bleeding, Easy bruising, Swollen glands Past Medical History - SOCIAL HISTORY Smoking Status: Current every day smoker Alcohol Use: None Drug Use: Occasional Drug Use Detail:: Marijuana - RESPIRATORY Hx Respiratory Disorders: No - CARDIOVASCULAR Hx Cardio Disorders: Yes Hx Hypertension: Yes - NEURO Hx Neuro Disorders: Yes Hx Neuropathy: Yes - GI Hx GI Disorders: Yes Hx Hiatal Hernia: Yes Hx Pancreatitis: Yes Hx Rectal Bleeding: Yes - Hx Genitourinary Disorders: Yes Comment:: dialysis T, Th, Sat - ENDOCRINE Hx Endocrine Disorders: Yes Hx Diabetes: Yes - MUSCULOSKELETAL Hx Musculoskeletal Disorders: Yes Hx Back Injury: Yes - PSYCH Hx Psych Problems: Yes Hx Anxiety: Yes Hx Depression: Yes - HEMATOLOGY/ONCOLOGY Hx Hematology/Oncology Disorders: No Hx Blood Transfusions: Yes Family Medical History Any Significant Family History?: No Hx Anxiety: Mother Hx Depression: Mother Hx Diabetes: Mother Hx Heart Disease: Mother Hx HTN: Mother Hx Resp Disorders: Mother Hx Seizures: Mother Hx Stroke: Father, Mother Physical Exam - General General Appearance: Alert, Oriented x3, Cooperative, No acute distress - Head Head exam: Normal inspection - Eye Eye exam: Normal appearance, PERRL Pupils: Normal accommodation - ENT ENT exam: Normal exam, Mucous membranes moist, Normal external ear exam, Normal orophraynx, TM's normal bilaterally Ear exam: Normal external inspection. negative: External canal tenderness Nasal Exam: Normal inspection. negative: Discharge, Sinus tenderness Mouth exam: Normal external inspection, Tongue normal Teeth exam: Normal inspection. negative: Dental caries Throat exam: Normal inspection. negative: Tonsillar erythema, Tonsillar exudate - Neck Neck exam: Normal inspection, Full ROM. negative: Tenderness - Respiratory Respiratory exam: Normal lung sounds bilaterally. negative: Respiratory distress - Cardiovascular Cardiovascular Exam: Regular rate, Normal rhythm, Normal heart sounds - GI/Abdominal GI/Abdominal exam: Soft, Normal bowel sounds. negative: Tenderness - Rectal Rectal exam: Deferred - exam: Deferred - Extremities Extremities exam: Normal capillary refill, Tenderness (left knee pain) - Back Back exam: Reports: Normal inspection, Full ROM. Denies: Muscle spasm, Rash noted, Tenderness - Neurological Neurological exam: Alert, Normal gait, Oriented X3, Reflexes normal - Psychiatric Psychiatric exam: Normal affect, Normal mood - Skin Skin exam: Dry, Intact, Normal color, Warm Course Vital Signs 01/08/18 13:43 Pulse Rate 97 H Respiratory 18 Rate Blood Pressure 176/93 Pulse Ox 95 - Reevaluation(s) Reevaluation #1: reviewed his xray with a fibular fracture, nondisplaced 01/08/18 14:40 Disposition Clinical Impression: Knee pain, left Qualifiers: Chronicity: acute Qualified Code(s): M25.562 - Pain in left knee Left fibular fracture Qualifiers: Encounter type: initial encounter Fibula location: proximal Fracture type: closed Fracture morphology: unspecified fracture morphology Qualified Code(s): S82.832A - Other fracture of upper and lower end of left fibula, initial encounter for closed fracture Disposition: Home, Self-Care Condition: (1) Good Instructions: Leg Fracture (ED) Additional Instructions: follow up with primary to get referral to ortho continue to wear his knee brace Prescriptions: Hydrocodone/Acetaminophen [[place] 5-325 Tablet] 1 each PO Q6HR #30 tablet Time of Disposition: 14:52 Quality - Quality Measures Quality Measures: N/A - Blood Pressure Screening Does Patient Have Any of the Following: No, Active Dx of HTN Blood Pressure Classification: Hypertensive Reading Systolic Measurement: 176 Diastolic Measurement: 93 Screening for High Blood Pressure: Patient Exclusion, Hx of HTN [G9744]
== END 2018-01-08 14:57 | disposition home or self-care (01) ==
LOC: ER 13:31
DX: S82.832A Other fracture of upper and lower end of left fibula, initial encounter for closed fracture (principal); G89.11 Acute pain due to trauma; M25.562 Pain in left knee; I10 Essential (primary) hypertension; E11.9 Type 2 diabetes mellitus without complications; Z79.4 Long term (current) use of insulin; Z99.2 Dependence on renal dialysis; F17.210 Nicotine dependence, cigarettes, uncomplicated; W19.XXXA Unspecified fall, initial encounter
CPT/HCPCS: 99282

== ENCOUNTER 2018-01-14 16:09 | Emergency (ER) | payer MEDICARE, MEDICAID ==
--- NOTE | 2018-01-14 16:25 | Emergency Department Record ---
History of Present Illness - General Chief Complaint: Cough Stated Complaint: COLD,COUGH AND SADIQ Time Seen by Provider: 01/14/18 16:14 Source: Patient, Family Mode of Arrival: Ambulatory Limitations: No limitations - History of Present Illness Initial Comments: 47 yo male presents with shortness of breath over the last day. He is a smoker , with ESRD on dialysis. He has a mild cough. No fevers. He has chronic edema. His last HD was yesterday on . He reports he had to stop one hour early due to diarrhea. He is unsure of how much fluid was removed. He is on Keflex for recent redness of his fistula. His vascular surgeon started the Keflex. He admits to continued smoking and states he is not compliant with diet for his medications. This past Wednesday he had an extra dialysis run due to volume overload. He states he makes small amounts of urine daily. His Bean Roaster is Dr Perez. Complaint: Cough Onset/Timin -: Days(s) Severity: Moderate Quality: Other Consistency: Constant Improves With: Nothing, Rest Worsens With: Activity Context: Other Associated Symptoms: Cough (mild), Shortness of breath - Related Data Home Medications Medication Instructions Recorded Confirmed Last Taken Cephalexin [Keflex] 500 mg PO BID 01/14/18 01/14/18 01/14/18 Previous Rx's Medication Instructions Recorded Hydrocodone/Acetaminophen [[place] 1 each PO Q6HR #30 tablet 01/08/18 5-325 Tablet] Allergies Allergy/AdvReac Type Severity Reaction Status Date / Time No Known Drug Allergies Allergy Verified 01/14/18 16:20 Travel Screening - Travel/Exposure Within Last 30 Days Have you traveled within the last 30 days?: No Review of Systems Constitutional: Denies: Chills, Fever, Malaise, Weakness Eyes: Denies: Eye discharge, Photophobia ENT: Denies: Congestion, Epistaxis, Throat pain Respiratory: Reports: Cough, Dyspnea. Denies: Hemoptysis, Stridor, Wheezes Cardiovascular: Reports: Dyspnea on exertion, Edema. Denies: Chest pain, Palpitations, Syncope Endocrine: Reports: Fatigue Gastrointestinal: Denies: Abdominal pain, Diarrhea, Nausea, Vomiting Genitourinary: Denies: Dysuria, Frequency Musculoskeletal: Denies: Arthralgia, Back pain, Neck pain Skin: Denies: Bruising, Change in color, Rash Neurological: Denies: Headache Psychiatric: Reports: Anxiety Hematological/Lymphatic: Denies: Blood Clots, Easy bleeding, Easy bruising Past Medical History - SOCIAL HISTORY Smoking Status: Current every day smoker Drug Use: Occasional Drug Use Detail:: Marijuana - RESPIRATORY Hx Respiratory Disorders: No - CARDIOVASCULAR Hx Cardio Disorders: Yes Hx Hypertension: Yes - NEURO Hx Neuro Disorders: Yes Hx Neuropathy: Yes - GI Hx GI Disorders: Yes Hx Hiatal Hernia: Yes Hx Pancreatitis: Yes Hx Rectal Bleeding: Yes - Hx Genitourinary Disorders: Yes Comment:: dialysis T, Th, Sat - ENDOCRINE Hx Endocrine Disorders: Yes Hx Diabetes: Yes - MUSCULOSKELETAL Hx Musculoskeletal Disorders: Yes Hx Back Injury: Yes - PSYCH Hx Psych Problems: Yes Hx Anxiety: Yes Hx Depression: Yes - HEMATOLOGY/ONCOLOGY Hx Hematology/Oncology Disorders: No Hx Blood Transfusions: Yes Family Medical History Hx Anxiety: Mother Hx Depression: Mother Hx Diabetes: Mother Hx Heart Disease: Mother Hx HTN: Mother Hx Resp Disorders: Mother Hx Seizures: Mother Hx Stroke: Father, Mother Physical Exam - General General Appearance: Alert, Oriented x3, Cooperative, Anxious Limitations: No limitations - Head Head exam: Atraumatic, Normal inspection - Eye Eye exam: Normal appearance. negative: Conjunctival injection - ENT ENT exam: Normal exam, Mucous membranes moist Ear exam: Normal external inspection Nasal Exam: Normal inspection Mouth exam: Normal external inspection - Neck Neck exam: Normal inspection, Full ROM. negative: Tenderness - Respiratory Respiratory exam: Accessory muscle use, Decreased breath sounds, Prolonged expiratory. negative: Normal lung sounds bilaterally, Respiratory distress - Cardiovascular Cardiovascular Exam: Regular rate, Normal rhythm, Normal heart sounds Peripheral Pulses: 2+: Radial (R), Radial (L) - GI/Abdominal GI/Abdominal exam: Soft. negative: Tenderness - Rectal Rectal exam: Deferred - exam: Deferred - Extremities Extremities exam: Pedal edema. negative: Normal inspection - Back Back exam: Denies: CVA tenderness (R), CVA tenderness (L) - Neurological Neurological exam: Alert, Oriented X3 - Psychiatric Psychiatric exam: Normal affect, Normal mood - Skin Skin exam: Dry, Intact, Normal color, Warm Course Vital Signs 01/14/18 16:13 Temperature 97.4 F L Pulse Rate 91 H Respiratory 24 Rate Blood Pressure 213/117 Pulse Ox 97 - Reevaluation(s) Reevaluation #1: EKG #1: 1641 Rate: 89 Rhythm: sinus [place]: leftward Intervals: normal ST segments: NS anterior changes Prior: 01/14/18 16:52 01/14/18 17:03 The CBC was reviewed. Chronic stable anemia. The BP remained significantly elevated. Nitro and Lasix ordered. 01/14/18 17:10 BP improved after nitro. Work of breathing improved with oxygen and nitro CMP reviewed Sodium is 129 K is 6.0 CR is 4.1 BUN is 49 Glucose is 507 Normal AG and HCO3 01/14/18 17:12 Troponin 0.38 01/14/18 17:45 I GUY Jorge of nephrology. She [place] [facility] [facility] [place]. 01/14/18 17:55 I Discussed the case with Dr Godwin. He requested the patient go through the ED. I GUY Tavarez of the ED accepts the patient The nitro will be tritrated to BP and symptoms. His symptoms are much improved at this time 01/14/18 18:23 Nitro titrated to 50mcg/min. Medical Decision Making - Lab Data Result diagrams: 01/14/18 16:28 01/14/18 16:28 Disposition Disposition: Transfer Clinical Impression: ESRD (end stage renal disease), Hypertensive urgency, Hyperkalemia, Elevated troponin Dyspnea Qualifiers: Dyspnea type: unspecified Qualified Code(s): R06.00 - Dyspnea, unspecified Disposition: Acute Care Hospital Transfer [place] [facility] For Transfer: Hypertensive Urgency, ESRD, Dyspnea Accepting Physician: Tato Jorge Boukouris Time Discussed w/Accepting Physician: 18:06 Condition: (3) Guarded Forms: Patient Portal Access Time of Disposition: 17:46 Quality - Quality Measures Quality Measures: N/A - Blood Pressure Screening Does Patient Have Any of the Following: Active Dx of HTN Blood Pressure Classification: Hypertensive Reading Systolic Measurement: 213 Diastolic Measurement: 117 Screening for High Blood Pressure: Patient Exclusion, Hx of HTN [G9744]
[2018-01-14 16:38] LABS: BASO % 0.7 % (0-6); GRAN % 78.9 % (47-80); HEMOGLOBIN 9.3 gm/dl (14.0-18.0); LYMPH % 9.2 % (16-45); MEAN CELL VOLUME 95.2 fl (81-97); MEAN CORPUSCULAR HEMOGLOBIN 29.5 pg (27-33); MEAN PLATELET VOLUME 9.9 fl (7.4-10.4); MONO % 7.2 % (0-9); PLATELET COUNT 245 K/uL (130-400); RED BLOOD COUNT 3.15 M/uL (4.40-5.70); RED CELL DISTRIBUTION WIDTH 16.5 % (11.5-14.5)
[2018-01-14 16:50] LABS: INR 1.1; PARTIAL THROMBOPLASTIN TIME 32.8 SECONDS (24.5-39.1); PROTHROMBIN TIME (PATIENT) 11.4 SECONDS (9.5-12.1)
[2018-01-14] MEDS ORDERED: FUROSEMIDE IV 40MG/4ML VIAL IVP ONE (16:54)
[2018-01-14] MEDS ORDERED: NITROGLYCERIN 0.4MG SL TABLET #25 BTL SL ONE (16:54)
[2018-01-14 16:57] LABS: CREATININE 4.1 mg/dL (0.7-1.2); TOTAL PROTEIN 9.1 g/dL (6.6-8.7)
[2018-01-14 17:08] LABS: ALBUMIN 4.5 g/dL (4.0-5.0)
[2018-01-14] MEDS ORDERED: HUMULIN R 100 UNIT/ML VIAL SQ ONE (17:11)
[2018-01-14] MEDS ORDERED: NITROGLYCERIN/D5W 50 MG/250 ML ML IV SCH (17:15)
[2018-01-14] MEDS ORDERED: ASPIRIN 81 MG CHEWABLE TABLET PO ONE (17:33)
[2018-01-14] MEDS ORDERED: CLONIDINE HCL 0.1 MG TABLET PO ONE (18:24)
--- NOTE | 2018-01-17 13:01 | RADIOLOGY REPORT ---
EXAM: CHEST, TWO VIEWS HISTORY: COLD,COUGH AND DIFFICULTY IN BREATHING. TECHNIQUE: Two views of the chest were obtained. FINDINGS: There is elevation of each lung base. There is plate like atelectasis at the left base. There is mild cardiomegaly without overt failure. There is no evidence of effusion. No parenchymal masses are seen. IMPRESSION: 1. CARDIOMEGALY WITHOUT FAILURE. 2. LOW LUNG VOLUMES WITH BASILAR ATELECTASIS. JOB NUMBER: [id number] [facility]
== END 2018-01-14 18:50 | disposition short-term general hospital (02) ==
LOC: ER 16:09
DX: I12.0 Hypertensive chronic kidney disease with stage 5 chronic kidney disease or end stage renal disease (principal); N18.6 End stage renal disease; R79.89 Other specified abnormal findings of blood chemistry; E87.5 Hyperkalemia; R19.7 Diarrhea, unspecified; R06.00 Dyspnea, unspecified; F17.210 Nicotine dependence, cigarettes, uncomplicated; Z79.4 Long term (current) use of insulin; Z99.2 Dependence on renal dialysis
CPT/HCPCS: 71046; 80053; 84484; 85025; 85610; 85730; 93005; 93010; 96365; 96372; 96375; 99285; J1940

== ENCOUNTER 2018-03-25 02:12 | Emergency (ER) | payer MEDICARE, MEDICAID ==
[2018-03-25] MEDS ORDERED: HYDROCODONE/APAP 5/325MG TABLET PO ONE (02:48)
--- NOTE | 2018-03-25 02:49 | Emergency Department Record ---
History of Present Illness - General Chief complaint: Pain Stated complaint: NERVE PAIN Time Seen by Provider: 03/25/18 02:45 Source: Patient, Family Mode of Arrival: Wheelchair Limitations: No limitations - History of Present Illness Initial comments: pt c/o of pain from his neuropathy in his feet. hes had this for years but it is worse tonight. he had dialysis today Complaint: Extremity pain, Extremity swelling Onset/Timin -: Month(s) Location: Bilateral, Foot Severity scale (1-10): 9 Improves with: Nothing - Related Data Home Medications Medication Instructions Recorded Confirmed Last Taken Insulin Glargine,Hum.rec.anlog 14 unit SQ DAILY 03/25/18 03/25/18 Unknown [Basaglar Kwikpen U-100] Allergies Allergy/AdvReac Type Severity Reaction Status Date / Time No Known Drug Allergies Allergy Verified 03/25/18 02:19 Travel Screening - Travel/Exposure Within Last 30 Days Have you traveled within the last 30 days?: No - Travel Symptoms Symptom Screening: None Review of Systems Reviewed: No additional complaints except as noted below Constitutional: Reports: As per HPI. Denies: Chills, Fever, Malaise, Night sweats, Weakness, Weight change Eyes: Reports: As per HPI. Denies: Eye discharge, Eye pain, Photophobia, Vision change ENT: Reports: As per HPI. Denies: Congestion, Dental pain, Ear pain, Epistaxis , Hearing loss, Throat pain Respiratory: Reports: As per HPI. Denies: Cough, Dyspnea, Hemoptysis, Stridor, Wheezes Cardiovascular: Reports: As per HPI. Denies: Arrhythmia, Chest pain, Dyspnea on exertion, Edema, Murmurs, Orthopnea, Palpitations, Paroxysmal nocturnal dyspnea, Rheumatic Fever, Syncope Endocrine: Reports: As per HPI. Denies: Fatigue, Heat or cold intolerance, Polydipsia, Polyuria Gastrointestinal: Reports: As per HPI. Denies: Abdominal pain, Constipation, Diarrhea, Hematemesis, Hematochezia, Melena, Nausea, Vomiting Genitourinary: Reports: As per HPI. Denies: Dysuria, Frequency, Hematuria, Incontinence, Retention, Testicular pain, Testicular mass, Urgency Musculoskeletal: Reports: As per HPI. Denies: Arthralgia, Back pain, Gout, Joint swelling, Myalgia, Neck pain Skin: Reports: As per HPI. Denies: Bruising, Change in color, Change in hair/ nails, Lesions, Pruritus, Rash Neurological: Reports: As per HPI. Denies: Abnormal gait, Confusion, Headache, Numbness, Paresthesias, Seizure, Tingling, Tremors, Vertigo, Weakness Psychiatric: Reports: As per HPI. Denies: Anxiety, Auditory hallucinations, Depression, Homicidal thoughts, Suicidal thoughts, Visual hallucinations Hematological/Lymphatic: Reports: As per HPI. Denies: Anemia, Blood Clots, Easy bleeding, Easy bruising, Swollen glands Past Medical History - SOCIAL HISTORY Smoking Status: Current every day smoker - RESPIRATORY Hx Respiratory Disorders: No - CARDIOVASCULAR Hx Cardio Disorders: Yes Hx Hypertension: Yes - NEURO Hx Neuro Disorders: Yes Hx Neuropathy: Yes - GI Hx GI Disorders: Yes Hx Hiatal Hernia: Yes Hx Pancreatitis: Yes Hx Rectal Bleeding: Yes - Hx Genitourinary Disorders: Yes Hx Dialysis: Yes Comment:: dialysis T, Th, Sat - ENDOCRINE Hx Endocrine Disorders: Yes Hx Diabetes: Yes - MUSCULOSKELETAL Hx Musculoskeletal Disorders: Yes Hx Back Injury: Yes - PSYCH Hx Psych Problems: Yes Hx Anxiety: Yes Hx Depression: Yes - HEMATOLOGY/ONCOLOGY Hx Hematology/Oncology Disorders: No Hx Blood Transfusions: Yes Family Medical History Any Significant Family History?: Yes Hx Anxiety: Mother Hx Depression: Mother Hx Diabetes: Mother Hx Heart Disease: Mother Hx HTN: Mother Hx Resp Disorders: Mother Hx Seizures: Mother Hx Stroke: Father, Mother Physical Exam - General General Appearance: Alert, Oriented x3, Cooperative, Mild distress - Head Head exam: Normal inspection - Eye Eye exam: Normal appearance, PERRL, EOMI Pupils: Normal accommodation - ENT ENT exam: Normal exam, Mucous membranes moist, Normal external ear exam, Normal orophraynx Ear exam: Normal external inspection. negative: External canal tenderness Nasal Exam: Normal inspection. negative: Discharge, Sinus tenderness Mouth exam: Normal external inspection, Tongue normal Teeth exam: Normal inspection. negative: Dental caries Throat exam: Normal inspection. negative: Tonsillar erythema, Tonsillar exudate - Neck Neck exam: Normal inspection, Full ROM. negative: Tenderness - Respiratory Respiratory exam: Normal lung sounds bilaterally. negative: Respiratory distress - Cardiovascular Cardiovascular Exam: Normal rhythm, Normal heart sounds, Systolic murmur, Tachycardia - GI/Abdominal GI/Abdominal exam: Soft, Normal bowel sounds. negative: Tenderness - Rectal Rectal exam: Deferred - exam: Deferred - Extremities Extremities exam: Full ROM, Normal capillary refill, Pedal edema, Tenderness - Back Back exam: Reports: Normal inspection, Full ROM. Denies: Muscle spasm, Rash noted, Tenderness - Neurological Neurological exam: Alert, CN II-XII intact, Normal gait, Oriented X3 - Psychiatric Psychiatric exam: Normal affect, Normal mood - Skin Skin exam: Dry, Erythema, Intact, Normal color, Warm Distribution of rash: RLE, LLE Description of rash: Erythematous, Swelling, Tenderness Course Vital Signs 03/25/18 02:19 Temperature 98.2 F Pulse Rate 102 H Respiratory 20 Rate Blood Pressure 181/106 Pulse Ox 94 L - Reevaluation(s) Reevaluation #1: 03/25/18 04:23 pt has a loud harsh murmur. pt states hes never had a murmur. he has an elevated troponin and high bnp Medical Decision Making - Lab Data Result diagrams: 03/25/18 02:51 03/25/18 02:51 Disposition Disposition: Transfer Clinical Impression: Elevated troponin, Newly recognized murmur, Cellulitis of leg, right CHF (congestive heart failure) Qualifiers: Heart failure type: unspecified Heart failure chronicity: acute on chronic Qualified Code(s): I50.9 - Heart failure, unspecified Renal failure Qualifiers: Renal failure chronicity: chronic Chronic kidney disease stage: on chronic dialysis Qualified Code(s): N18.6 - End stage renal disease Disposition: Acute Care Hospital Transfer Transfer To: [facility] Reason For Transfer: dialysis pt. elevated troponin. new murmur. chf Accepting Physician: dr benson Time Discussed w/Accepting Physician: 04:53 Forms: Patient Portal Access Quality - Quality Measures Quality Measures: N/A - Blood Pressure Screening Does Patient Have Any of the Following: Active Dx of HTN Blood Pressure Classification: Hypertensive Reading Systolic Measurement: 181 Diastolic Measurement: 106 Screening for High Blood Pressure: Patient Exclusion, Hx of HTN [G9744]
[2018-03-25 02:59] LABS: BASO % 1.2 % (0-6); EOS % 5.1 % (0-6); GRAN % 75.5 % (47-80); HEMATOCRIT 33.6 % (42.0-52.0); HEMOGLOBIN 10.7 gm/dl (14.0-18.0); LYMPH % 9.5 % (16-45); MEAN CELL VOLUME 92.1 fl (81-97); MEAN CORPUSCULAR HEMOGLOBIN 29.3 pg (27-33); MEAN CORPUSCULAR HGB CONC 31.8 g/dl (32-36); MEAN PLATELET VOLUME 9.5 fl (7.4-10.4); MONO % 8.7 % (0-9); PLATELET COUNT 274 K/uL (130-400); RED BLOOD COUNT 3.65 M/uL (4.40-5.70); RED CELL DISTRIBUTION WIDTH 16.4 % (11.5-14.5); WHITE BLOOD COUNT W/O DIFF 10.6 K/uL (4.2-12.2)
[2018-03-25 03:45] LABS: BLOOD UREA NITROGEN 29 mg/dL (6-20); CREATININE 3.9 mg/dL (0.7-1.2); EST GLOMERULAR FILTRATION RATE 18 mL/min
[2018-03-25 03:48] LABS: GLUCOSE,RANDOM 336 mg/dL (74-109)
[2018-03-25 04:06] LABS: NTpro B-NATRIURETIC PEPTIDE > 35000.00 pg/mL (<125)
[2018-03-25] MEDS ORDERED: FUROSEMIDE IV 40MG/4ML VIAL IVP ONE (04:11)
[2018-03-25] MEDS ORDERED: MORPHINE SULFATE 10 MG/ML VIAL IVP ONE (04:13)
== END 2018-03-25 05:38 | disposition short-term general hospital (02) ==
LOC: ER 02:12
DX: I13.2 Hypertensive heart and chronic kidney disease with heart failure and with stage 5 chronic kidney disease, or end stage renal disease (principal); E11.22 Type 2 diabetes mellitus with diabetic chronic kidney disease; I50.9 Heart failure, unspecified; N18.6 End stage renal disease; Z99.2 Dependence on renal dialysis; R79.89 Other specified abnormal findings of blood chemistry; L03.115 Cellulitis of right lower limb; R01.1 Cardiac murmur, unspecified; F17.210 Nicotine dependence, cigarettes, uncomplicated; Z79.4 Long term (current) use of insulin
CPT/HCPCS: 99285 ×2; 85025; 80048; 84484; 83880; 93005; 93010; J2270; J1940

== ENCOUNTER 2018-03-30 05:01 | Emergency (ER) | payer MEDICARE, MEDICAID ==
[2018-03-30] MEDS ORDERED: FUROSEMIDE IV 40MG/4ML VIAL IVP ONE (05:05)
--- NOTE | 2018-03-30 05:11 | Emergency Department Record ---
History of Present Illness - General Chief Complaint: Shortness of breath Stated Complaint: SADIQ Time Seen by Provider: 03/30/18 05:04 Source: Patient, Family Mode of Arrival: Ambulatory Limitations: No limitations - History of Present Illness Initial Comments: 47 yo male presents with shortness of breath. He has had a cough but become short of breath through out the night. He has ESRD. He is on HD. He states his last HD was Wednesday. He has leg edema. NO fever. The cough is clear at this time. 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 He was at [facility] last week but per his sister he signed himself out AMA. He does smoke cigarettes and marijuana. MD Complaint: Shortness of breath -: Hour(s) Severity: Moderate Quality: Other Consistency: Constant Improves With: Nothing Worsens With: Other (ESRD) Known History Of: Other (ESRD) Context: Other Associated Symptoms: Cough - Related Data Allergies Allergy/AdvReac Type Severity Reaction Status Date / Time No Known Drug Allergies Allergy Verified 03/25/18 02:19 Review of Systems Constitutional: Denies: Chills, Fever, Malaise, Weakness Eyes: Denies: Eye discharge ENT: Reports: Congestion Respiratory: Reports: Cough, Dyspnea Cardiovascular: Reports: Dyspnea on exertion, Edema. Denies: Chest pain, Syncope Endocrine: Reports: Fatigue Gastrointestinal: Denies: Abdominal pain, Diarrhea, Nausea, Vomiting Genitourinary: Denies: Dysuria, Frequency, Hematuria Musculoskeletal: Denies: Arthralgia, Back pain, Joint swelling, Myalgia Skin: Denies: Bruising, Change in color, Rash Neurological: Denies: Headache Psychiatric: Reports: Anxiety Hematological/Lymphatic: Denies: Easy bleeding, Easy bruising Past Medical History - SOCIAL HISTORY Smoking Status: Current every day smoker - RESPIRATORY Hx Respiratory Disorders: No - CARDIOVASCULAR Hx Cardio Disorders: Yes Hx Hypertension: Yes - NEURO Hx Neuro Disorders: Yes Hx Neuropathy: Yes - GI Hx GI Disorders: Yes Hx Hiatal Hernia: Yes Hx Pancreatitis: Yes Hx Rectal Bleeding: Yes - Hx Genitourinary Disorders: Yes Hx Dialysis: Yes Comment:: dialysis T, , Wed - ENDOCRINE Hx Endocrine Disorders: Yes Hx Diabetes: Yes - MUSCULOSKELETAL Hx Musculoskeletal Disorders: Yes Hx Back Injury: Yes - PSYCH Hx Psych Problems: Yes Hx Anxiety: Yes Hx Depression: Yes - HEMATOLOGY/ONCOLOGY Hx Hematology/Oncology Disorders: No Hx Blood Transfusions: Yes Family Medical History Hx Anxiety: Mother Hx Depression: Mother Hx Diabetes: Mother Hx Heart Disease: Mother Hx HTN: Mother Hx Resp Disorders: Mother Hx Seizures: Mother Hx Stroke: Father, Mother Physical Exam - General General Appearance: Alert, Oriented x3, Cooperative, Mild distress Limitations: No limitations - Head Head exam: Atraumatic, Normal inspection - Eye Eye exam: Normal appearance. negative: Conjunctival injection - ENT ENT exam: Normal exam Ear exam: Normal external inspection Nasal Exam: Normal inspection Mouth exam: Normal external inspection - Neck Neck exam: Other (JVD). negative: Normal inspection - Respiratory Respiratory exam: Accessory muscle use, Decreased breath sounds, Prolonged expiratory, Rales (bilateral). negative: Normal lung sounds bilaterally - Cardiovascular Cardiovascular Exam: Normal rhythm - GI/Abdominal GI/Abdominal exam: Soft. negative: Tenderness - Rectal Rectal exam: Deferred - exam: Deferred - Extremities Extremities exam: Pedal edema (+2-3 bilateral). negative: Normal inspection - Back Back exam: Denies: CVA tenderness (R), CVA tenderness (L) - Neurological Neurological exam: Alert, Oriented X3 - Psychiatric Psychiatric exam: Anxious - Skin Skin exam: Dry, Intact, Normal color, Warm Course - Reevaluation(s) Reevaluation #1: The patient has ESRD presenting with dyspnea. He has rales on examination. BiPap,Nitro, Lasix ordered. 03/30/18 05:10 The patient is tolerating BiPap initially Saturations improved to 95% from 80's 03/30/18 05:20 03/30/18 05:24 ABG pH 7.32 pCO2 46 pO2 53 03/30/18 05:29 EKG 05:24 sinus rhythm rate 80, intervals normal, axis L, ST LVH No changes 03/30/18 05:33 The CBC was reviewed. Improved chronic anemia. 03/30/18 05:56 CR is 5.3 BUN 50 K is elevated at 6.4 Troponin is elevated at 0.43 BNP > 35,000 CXR demonstrated CMG, PVC. 03/30/18 06:14 Scott Hemphill of nephrology He recommends ED to ED transfer Scott Rivera of the ED She accepts the patient for transfer He is tolerating BiPap well. He is stabilized for transfer 03/30/18 06:26 Medical Decision Making - Management Options MDM Management: Additional Work-up Planned (e.g. ADM/Transfer/OP Study) - Data Complexity MDM Data: Labs Ordered and/or Reviewed, X-Ray Ordered and/or Reviewed, EKG Ordered and/or Reviewed, Independent Visualization of Image, Tracing, or Specimen, Discussion of Test Results With Performing Physician, Decision to Obtain Old Record, Review and Summary of Old Record Discussed - Lab Data Result diagrams: 03/30/18 05:10 03/30/18 05:10 Critical Care Time Critical Care Time: Yes Total Critical Care Time: 85 Disposition Disposition: Transfer Clinical Impression: ESRD (end stage renal disease), Dyspnea, CHF (congestive heart failure), Hypoxia Disposition: Acute Care Hospital Transfer Transfer To: [facility] Reason For Transfer: ESRD,CHF,Dialysis Accepting Physician: Miguel Time Discussed w/Accepting Physician: 06:18 Condition: (3) Guarded Forms: Patient Portal Access Time of Disposition: 06:18 Quality - Quality Measures Quality Measures: N/A - Blood Pressure Screening Does Patient Have Any of the Following: Active Dx of HTN Blood Pressure Classification: Hypertensive Reading Systolic Measurement: 146 Diastolic Measurement: 91 Screening for High Blood Pressure: Patient Exclusion, Hx of HTN [[id number]]
[2018-03-30] MEDS ORDERED: NITROGLYCERIN/D5W 50 MG/250 ML ML IV SCH (05:15)
[2018-03-30] MEDS ORDERED: LIDOCAINE UROJECT 10 ML APPL MM ONE (05:23)
[2018-03-30 05:24] LABS: ARTERIAL BLOOD GAS BASE EXCESS -1.8 mmol/L (-2 - 3); ARTERIAL BLOOD GAS HCO3 23.4 mmol/L (18-23); ARTERIAL BLOOD GAS PCO2 46.6 mmHg (35-48); ARTERIAL BLOOD GAS pH 7.32 (7.35-7.45); HEMATOCRIT 36.3 % (42.0-52.0); HEMOGLOBIN 11.5 gm/dl (14.0-18.0); MEAN CORPUSCULAR HEMOGLOBIN 28.8 pg (27-33); MEAN CORPUSCULAR HGB CONC 31.7 g/dl (32-36); MEAN PLATELET VOLUME 9.9 fl (7.4-10.4); PLATELET COUNT 255 K/uL (130-400); RED BLOOD COUNT 3.99 M/uL (4.40-5.70); RED CELL DISTRIBUTION WIDTH 16.1 % (11.5-14.5); WHITE BLOOD COUNT W/O DIFF 10.5 K/uL (4.2-12.2)
[2018-03-30 05:25] LABS: ARTERIAL BLD GAS O2 SATURATION 85.7 % (95-98); CARBOXYHEMOGLOBIN 4.9 % (0-1.5); METHEMOGLOBIN 0.2 % (0.0-1.5); O2 HEMOGLOBIN 81.3 % vol (94-99); TOTAL HEMOGLOBIN 10.6 g/dl (14-18)
[2018-03-30 05:32] LABS: BLOOD UREA NITROGEN 50 mg/dL (6-20); CREATININE 5.3 mg/dL (0.7-1.2); EST GLOMERULAR FILTRATION RATE 12 mL/min
[2018-03-30 05:35] LABS: GLUCOSE,RANDOM 96 mg/dL (74-109)
[2018-03-30 05:38] LABS: INR 1.2
[2018-03-30 05:44] LABS: NTpro B-NATRIURETIC PEPTIDE > 35000.00 pg/mL (<125)
[2018-03-30 05:47] LABS: ANISOCYTOSIS 1+; PLATELET ESTIMATE NORMAL (NORMAL)
[2018-03-30] MEDS ORDERED: HUMULIN R 100 UNIT/ML VIAL IV ONE (05:54)
[2018-03-30] MEDS ORDERED: DEXTROSE 50 % IVP 50 ML DISP.SYRIN IVP ONE (05:54)
[2018-03-30] MEDS ORDERED: CALCIUM GLUCONATE 1,000 MG in 0.9 % SODIUM CHLORIDE 100ML 100 ML IV ONE (05:54)
[2018-03-30] MEDS ORDERED: SODIUM BICARBONATE 50MEQ SYRINGE IVP ONE (05:54)
--- NOTE | 2018-03-30 14:30 | RADIOLOGY REPORT ---
EXAM: CHEST 1 VIEW HISTORY: DIFFICULTY IN BREATHING. TECHNIQUE: An AP upright view of the chest was performed. FINDINGS: There is mild cardiomegaly. Mild congestion. No infiltrate or pleural effusion. IMPRESSION: CARDIOMEGALY WITH MILD CONGESTION. JOB NUMBER: [id number] MTDD
== END 2018-03-30 07:04 | disposition short-term general hospital (02) ==
LOC: ER 05:01
DX: E11.22 Type 2 diabetes mellitus with diabetic chronic kidney disease (principal); I12.0 Hypertensive chronic kidney disease with stage 5 chronic kidney disease or end stage renal disease; N18.6 End stage renal disease; R06.02 Shortness of breath; R53.1 Weakness; R05 Cough; Z99.2 Dependence on renal dialysis; Z79.4 Long term (current) use of insulin; F17.210 Nicotine dependence, cigarettes, uncomplicated
CPT/HCPCS: 36600; 71045; 80048; 82375; 82803; 83880; 84484; 85027; 85610; 85730; 94660; 96374; 96375; 99285; J1940